=== PATIENT | male | born 1960 | race Caucasian/White ===

== ENCOUNTER 2018-05-23 00:58 | Emergency (ER) | payer OTHER ==
--- NOTE | 2018-05-23 01:32 | PDOC ---
History of Present Illness - General History Source: Patient - History of Present Illness Initial Comments: 05/23/18 02:14 58 yr old man with hypercholesterolemia, hx of colon polyps presents with left sided chest pain that feels "pressure-like" that is 7/10 radiating upto his neck starting at 10:30pm a/w dizziness and mild frontal headache. He had been resting in bed reading since 7pm when the pain suddenly started. He took 72mg of aspiring and walked around which helped his pain decr some but not completely resolve, the pain continued until 11:30 when he took 3 more 72mg of aspirin and at midnight he called 911. he was in his usual state of health all day, had his usual fish dinner around 5pm. He had an steroid epidural for sciatica 1 week ago at [facility], has received them in the past. He had a colonoscopy 2 weeks ago at [facility], was found to have colonic polyps. traveled to [place] Feb 22 to Mar 24 2018 (9hr flight) exercise stress 4 years ago was negative. Denies shortness of breath, vision changes, abdomial pain, n/v, diarrhea, constipation, weight changes, dysuria, no LE edema, cough, trauma, dyspepsia. Sochx: denies smoking, ETOH, or drugs. 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 Pmhx: hypercholesterolemia, colon polyps, sciatica Surghx: denies <Princess Quiles - Last Filed: 05/23/18 02:57> <Anila Olvera - Last Filed: 05/23/18 03:46> - General Chief Complaint: Chest Pain Stated Complaint: CHEST PAIN Time Seen by Provider: 05/23/18 01:32 Past History - Travel Traveled outside of the country in the last 30 days: No Close contact w/someone who was outside of country & ill: No - Past Medical History Anemia: No Asthma: No Cancer: No Cardiac Disorders: No CVA: No COPD: No CHF: No Dementia: No Diabetes: No GI Disorders: Yes (colon polyps) Disorders: No HTN: No Hypercholesterolemia: Yes Liver Disease: No Seizures: No Thyroid Disease: No - Surgical History Abdominal Surgery: Yes (LASER -KIDNEY VEIN-POOR BLOOD SUPLY) Appendectomy: No Cardiac Surgery: No Cholecystectomy: No Lung Surgery: No Orthopedic Surgery: No - Family Disease History Family Disease History: Heart Disease: Father ( from colon ca at age 85 , AK at age 51), CA: Father, Other: Mother (at age 75) - Suicide/Smoking/Psychosocial Hx Smoking History: Never smoked Hx Alcohol Use: No Drug/Substance Use Hx: No Lives with/in: spouse/SO <Princess Quiles - Last Filed: 05/23/18 02:57> <Anila Olvera - Last Filed: 05/23/18 03:46> - Past Medical History Allergies/Adverse Reactions: Allergies Allergy/AdvReac Type Severity Reaction Status Date / Time No Known Allergies Allergy Verified 11/09/11 14:00 Home Medications: Ambulatory Orders Ezetimibe [Zetia] 10 mg PO HS 11/09/11 Simvastatin [Zocor] 80 mg PO HS 11/09/11 Review of Systems - Review of Systems Constitutional: No: Chills, Fever, Malaise, Night Sweats, Weakness, Unintentional Wgt. Loss HEENTM: No: Blurred Vision, Double Vision, Nose Congestion, Tinnitus, Difficulty Swallowing Respiratory: No: Cough, SOB with Exertion, Wheezing, Productive cough Cardiac (ROS): Yes: Chest Tightness. No: Edema, Irregular Heart Rate, Palpitations, Syncope ABD/GI: No: Abdominal Distended, Difficulty Swallowing, Nausea, Poor Appetite, Poor Fluid Intake, Abdominal cramping : No: Dysuria, Frequency, Flank Pain, Hematuria Musculoskeletal: No: Back Pain, Joint Pain, Muscle Pain, Muscle Weakness, Neck Pain Integumentary: No: Bruising, Erythema, Pruritus, Rash, Sweating Neurological: Yes: Headache, Dizziness. No: Numbness, Tremors, Unsteady Gait Endocrine: No: Excessive Sweating, Intolerance to Cold <Princess Quiles - Last Filed: 05/23/18 02:57> *Physical Exam - Physical Exam General Appearance: Yes: Appropriately Dressed HEENT: positive: EOMI, MAHENDRA, Normal Voice, Pharynx Normal. negative: Tonsillar Exudate, Rhinorrhea, Sinus Tenderness, Thrush Neck: positive: Trachea midline, Normal Thyroid, Supple. negative: Carotid bruit, Thyromegaly Respiratory/Chest: positive: Lungs Clear, Normal Breath Sounds. negative: Chest Tender, Crackles, Rhonchi, Wheezing Cardiovascular: positive: Regular Rhythm, Regular Rate. negative: JVD, Murmur Vascular Pulses: Carotid (R): 2+, Carotid (L): 2+ Gastrointestinal/Abdominal: positive: Soft. negative: Tender, Distended, Guarding, Rebound, Tenderness Musculoskeletal: negative: CVA Tenderness Extremity: negative: Calf Tenderness, Erythema Integumentary: positive: Dry, Warm Neurologic: positive: Fully Oriented, Alert, Motor Strength 5/5 <Princess Quiles - Last Filed: 05/23/18 02:57> - Vital Signs Last Vital Signs Temp Pulse Resp BP Pulse Ox 98.1 F 77 18 116/74 98 05/23/18 00:58 05/23/18 00:58 05/23/18 00:58 05/23/18 00:58 05/23/18 00:58 <Anila Olvera - Last Filed: 05/23/18 03:46> Moderate Sedation - Procedure Monitoring Vital Signs: Procedure Monitoring Vital Signs Temperature 98.1 F 05/23/18 00:58 Pulse Rate 77 05/23/18 00:58 Respiratory Rate 18 05/23/18 00:58 Blood Pressure 116/74 05/23/18 00:58 O2 Sat by Pulse Oximetry (%) 98 05/23/18 00:58 <Anila Olvera - Last Filed: 05/23/18 03:46> Heart Score/ECG Review - Electrocardiogram EKG: Normal - Age Age: 45-65 - Risk Factors Risk Factors Heart Score: Yes Hx Hypercholesterolemia, Yes Positive family hx of cardiac disease Based on the list above the patient has:: 1-2 risk factors - ECG Intrepretation Rhythm: Regular Rhythm - [place]: Normal - ECG Impressions Normal ECG: Yes <Princess Quiles - Last Filed: 05/23/18 02:57> ED Treatment Course - LABORATORY CBC & Chemistry Diagram: 05/23/18 02:01 05/23/18 02:01 <Princess Quiles - Last Filed: 05/23/18 02:57> - LABORATORY CBC & Chemistry Diagram: 05/23/18 02:01 05/23/18 02:01 - ADDITIONAL ORDERS Additional order review: Laboratory Results 05/23/18 05/23/18 02:01 02:01 PT with INR 10.90 INR 0.92 Sodium 139 Potassium 4.1 Chloride 104 Carbon Dioxide 27 Anion Gap 8 BUN 21 H Creatinine 0.9 Creat Clearance w eGFR > 60 Random Glucose 92 Calcium 8.3 L Total Bilirubin 0.3 AST 20 ALT 39 Alkaline Phosphatase 70 Creatine Kinase 128 Troponin I < 0.02 Total Protein 6.9 Albumin 3.8 05/23/18 02:01 RBC 4.78 MCV 94.1 MCHC 35.4 RDW 13.0 MPV 11.7 H Neutrophils % 60.2 Lymphocytes % 28.5 Monocytes % 9.3 Eosinophils % 1.4 Basophils % 0.6 - RADIOLOGY Radiology Studies Ordered: Category Date Time Status CHEST PA & LAT [RAD] Stat Radiology 05/23/18 02:20 Taken <Anila Olvera - Last Filed: 05/23/18 03:46> Medical Decision Making - Medical Decision Making 05/23/18 02:32 58 yr old man with HLD presents with chest pain. EKG normal with 2 risk factors for AK, will check troponin and basic labs to r/ o anemia or electrolyte abnormality that may be causing the chest pain as he just had a colonoscopy recently. 05/23/18 02:57 Labs all wnl without leucocytosis, anemia, or electrolyte abnormalities. Trop negative. discussed with labs and EKG results with patient and recommendation to follow- up with PCP for further outpatient evaluation. pt and in agreement with plan. answered all questions to their satisfaction. pt's chest symptoms resolved with no reoccurence in the ED. pt stable for outpatient follow-up. <Princess Quiles - Last Filed: 05/23/18 02:57> *DC/Admit/Observation/Transfer - Discharge Dispostion Decision to Admit order: No <Princess Quiles - Last Filed: 05/23/18 02:57> <Anila Olvera - Last Filed: 05/23/18 03:46> Diagnosis at time of Disposition: Atypical chest pain - Discharge Dispostion Disposition: HOME Condition at time of disposition: Stable - Referrals Referrals: Agustin Galeana MD [Primary Care Provider] - - Patient Instructions Printed Discharge Instructions: DI for Chest Pain Additional Instructions: You were evaluated for chest pain with an EKG and labs. Your EKG and labs were all normal today. Please follow-up with Dr. Galeana for post-hospital evaluation. If you develop chest pain again, trouble breathing or any new symptoms please return to the hospital. - Post Discharge Activity
[2018-05-23 01:52] VITALS: BP 116/74; PULSE 77; TEMP 98.1; BMI 29.9
[2018-05-23 02:20] LABS: BASO % 0.6 % (0-2.0); EOS % 1.4 % (0-4.5); LYMPH % 28.5 % (8-40); MCH 33.4 pg (25.7-33.7); MCHC 35.4 g/dl (32.0-35.9); MEAN CELL VOLUME 94.1 fl (80-96); MEAN PLT VOLUME 11.7 fl (7.5-11.1); MONO % 9.3 % (3.8-10.2); NEUT % 60.2 % (42.8-82.8); PLATELET COUNT 155 K/MM3 (134-434); RBC 4.78 M/mm3 (4.00-5.60); WHITE BLOOD COUNT 9.6 K/mm3 (4.0-10.0)
--- NOTE | 2018-05-23 02:23 | PDOC ---
Attending Attestation - Resident Resident Name: Princess Quiles - ED Attending Attestation I have performed the following: I have examined & evaluated the patient, The case was reviewed & discussed with the resident, I agree w/resident's findings & plan - Medical Decision Making 05/23/18 03:44 labs normal; cxr normal; exam normal. Pt has a normal sinus EKG and he will be discharged home. Heart Score/ECG Review - ECG Intrepretation Rhythm: Regular Rhythm - Chambers Chambers: Normal - P and LA Delta Wave(s) Present: No WPW: No - QRS Poor R Wave Progression: No Q Wave Present: No - ST and T Early Repolarization: No Non Specific ST-T Wave changes: No - ECG Impressions Normal ECG: Yes Non-specific ST Elevation: No Ischemic Changes: No Bradycardia: No Torsades justino Pointes: No WPW: No
[2018-05-23 02:34] LABS: INR 0.92 (0.83-1.09); PROTHROMBIN TIME (PATIENT) 10.9 SEC (9.7-13.0)
[2018-05-23 02:54] LABS: ALBUMIN 3.8 g/dl (3.4-5.0); ALK PHOS 70 U/L (45-117); ANION GAP 8 MMOL/L (8-16); BILIRUBIN,TOTAL 0.3 mg/dL (0.2-1); BLOOD UREA NITROGEN 21 mg/dL (7-18); CALCIUM 8.3 mg/dL (8.5-10.1); CHLORIDE 104 mmol/L (98-107); CO2 27 mmol/L (21-32); CREATININE 0.9 mg/dL (0.55-1.3); GLUCOSE,RANDOM 92 mg/dL (74-106); POTASSIUM 4.1 mmol/L (3.5-5.1); SGOT/AST 20 U/L (15-37); SGPT/ALT 39 U/L (13-61); SODIUM 139 mmol/L (136-145); TOT PROT 6.9 g/dl (6.4-8.2)
--- NOTE | 2018-05-23 10:30 | EKG ---
Test Reason : Blood Pressure : / mmHG Vent. Rate : 060 BPM Atrial Rate : 060 BPM P-R Int : 150 ms QRS Dur : 102 ms QT Int : 420 ms P-R-T Axes : 039 030 037 degrees QTc Int : 420 ms NORMAL SINUS RHYTHM NORMAL ECG NO PREVIOUS ECGS AVAILABLE Confirmed by GRETCHEN LUNSFORD MD ([id number]) on 05/23/2018 10:30:07 AM Referred By: Confirmed By:GRETCHEN LUNSFORD MD
== END 2018-05-23 04:30 | disposition home or self-care (01) ==
LOC: JER 00:58
DX: R07.9 Chest pain, unspecified (principal)
CPT/HCPCS: 36415; 71046-TC-FY; 80053; 82550; 84484; 85025; 85610; 93005; 93010; 99282-25

== ENCOUNTER 2019-11-20 15:05 | Emergency (ER) | payer OTHER ==
[2019-11-20 15:30] VITALS: BP 115/71; PULSE 72; TEMP 98.1; BMI 27.2
--- NOTE | 2019-11-20 17:21 | PDOC ---
History of Present Illness - General Chief Complaint: Pain, Acute Stated Complaint: BACK PAIN Time Seen by Provider: 11/20/19 15:42 - History of Present Illness Initial Comments: 11/20/19 17:13 59yo male with a history of HLD and disc herniation presenting with acute left flank pain and hematuria. States his left flank began 4 days prior. The next day, he began to have dark urine, and has seen red blood at the end of his stre am since yesterday. He describes the pain as cramping, intermittent, wrapping around to the front, and slightly on the right flank as well. Different from his chronic back pain. He has had polyuria and has been drinking a lot. ROS otherwise negative. Patient states he was told he had a kidney stone during an MRI for his back pain. Could not find that report. I saw a note of extrapelvic renal cysts. PMH/PSH: as in HPI Meds: statin Allergies:none Tob/Etoh/Rec drugs: denies ROS GENERAL/CONSTITUTIONAL: No fever or chills. No weakness. HEAD, EYES, EARS, NOSE AND THROAT: No change in vision. No ear pain or discharge. No sore throat. CARDIOVASCULAR: No chest pain or shortness of breath RESPIRATORY: No cough, wheezing, or hemoptysis. GASTROINTESTINAL: No nausea, vomiting, diarrhea or constipation. GENITOURINARY: hematuria and polyuria. left flank pain MUSCULOSKELETAL: No joint or muscle swelling or pain. SKIN: No rash NEUROLOGIC: No headache, vertigo, loss of consciousness, or change in strength/sensation. ENDOCRINE: No increased thirst. No abnormal weight change HEMATOLOGIC/LYMPHATIC: No anemia, easy bleeding, or history of blood clots. ALLERGIC/IMMUNOLOGIC: No hives or skin allergy. PE GENERAL: Awake, alert, and fully oriented, in no acute distress. Stiff left back, and stiff when transferring from lying/sitting/standing HEAD: No signs of trauma, normocephalic, atraumatic EYES: PERRLA, EOMI, sclera anicteric, conjunctiva clear ENT: Auricles normal inspection, hearing grossly normal, nares patent, oropharynx clear without exudates. Moist mucosa NECK: Normal ROM, supple, no lymphadenopathy, JVD, or masses LUNGS: No distress, speaks full sentences, clear to auscultation bilaterally HEART: Regular rate and rhythm, normal S1 and S2, no murmurs, rubs or gallops, peripheral pulses normal and equal bilaterally. ABDOMEN: Soft, nontender, normoactive bowel sounds. No guarding, no rebound. No masses. No flank ecchymosis. EXTREMITIES : Normal inspection, Normal range of motion, no edema. No clubbing or cyanosis. NEUROLOGICAL: Cranial nerves II through XII grossly intact. Normal speech, normal gait, no focal sensorimotor deficits SKIN: Warm, Dry, normal turgor, no rashes or lesions noted BACK: No midline tenderness, no CVA tenderness, no paraspinal tenderness. Vital Signs Temp Pulse Resp BP Pulse Ox 98.1 F 72 18 115/71 99 11/20/19 15:22 11/20/19 15:22 11/20/19 15:22 11/20/19 15:22 11/20/19 15:22 MDM: 59yo male with a history of HLD and disc herniation presenting with acute left flank pain and hematuria. UA is red in appearance. Most likely nephrolithiasis, but could be rhabomyolysis, as the patient's back is very stiff. Less concern for pylonephritis, ruptured AAA, aortic disection based on history and lack of exam findings. -CBC, CMP, coags, CK, UA/UC -CT A/P w/o contrast -1000ml NS, toradol, valium, lidoderm patch 11/20/19 18:23 Labs unremarkable. UA was red/orange, but no blood. CT negative for urolithiasis, hydronephrosis, or any acute renal process. Denied ingesting beets, rhubarb, and a list of other medications and foods that can turn urine red or orange. DC home with urology follow up and return precautions. 11/20/19 19:24 Past History - Medical History Allergies/Adverse Reactions: Allergies Allergy/AdvReac Type Severity Reaction Status Date / Time No Known Allergies Allergy Verified 11/20/19 15:22 Home Medications: Ambulatory Orders Atorvastatin Calcium mg PO 11/20/19 Anemia: No Asthma: No Cancer: No Cardiac Disorders: No CVA: No COPD: No CHF: No Dementia: No Diabetes: No GI Disorders: Yes (colon polyps) Disorders: No HTN: No Hypercholesterolemia: Yes Liver Disease: No Seizures: No Thyroid Disease: No - Surgical History Abdominal Surgery: Yes (LASER -KIDNEY VEIN-POOR BLOOD SUPLY) Appendectomy: No Cardiac Surgery: No Cholecystectomy: No Lung Surgery: No Orthopedic Surgery: No - Psycho-Social/Smoking History Smoking History: Never smoked Have you smoked in the past 12 months: No - Substance Abuse Hx (Audit-C & DAST Scrn) How often the patient has a drink containing alcohol: Never Score: In Men: 4 or > Positive; In Women: 3 or > Positive: 0 Screen Result (Pos requires Nsg. Audit-10AR): Negative In the last yr the pt used illegal drug/Rx for NonMed reason: No Score: Yes response is considered Positive: 0 Screen Result (Positive result requires Nsg. DAST-10): Negative *Physical Exam - Vital Signs Last Vital Signs Temp Pulse Resp BP Pulse Ox 98.1 F 72 18 115/71 99 11/20/19 15:22 11/20/19 15:22 11/20/19 15:22 11/20/19 15:22 11/20/19 15:22 ED Treatment Course - LABORATORY CBC & Chemistry Diagram: 11/20/19 17:29 11/20/19 17:29 Discharge - Discharge Information Problems reviewed: Yes Clinical Impression/Diagnosis: Flank pain, Red-colored urine Condition: Fair Disposition: HOME - Admission No - Follow up/Referral Referrals: Agustin Galeana MD [Primary Care Provider] - - Patient Discharge Instructions Additional Instructions: You were seen in the ER for left flank pain. We got labs and a urinalysis, which were normal. Your urine was red/orange, but there was no blood. WE did a CT scan which did not show a kidney stone or any other acute process. You were given toradol, valium, and a lidocaine patch for pain control as well as fluids. We do not have a good explanation for why you are having this pain or why your urine is red. We are giving you a referal with a urologist. You should also follow up with your primary care doctor within the next three days. You may continue to take advil 600mg every 6 hours up to 4 times per day for pain. You may also take tylenol 1000mg every 8 hours up to 3 times per day. Please return to the ER if you experience continued or worsening symptoms, fever, chills, lightheadedness, weakness, or any other problem. - Post Discharge Activity
[2019-11-20] MEDS ORDERED: SODIUM CHLORIDE 0.9% 500 ML INFUS.BAG IV ONE (17:38)
[2019-11-20] MEDS ORDERED: KETOROLAC TROMETHAMINE 15 MG/ML VIAL IVPUSH ONE (17:38)
[2019-11-20] MEDS ORDERED: diazePAM CARPU-JECT 10 MG/2 ML DISP.SYRIN IVPUSH ONE (17:38)
[2019-11-20] MEDS ORDERED: diazePAM 5 MG TABLET PO ONE (17:40)
[2019-11-20] MEDS ORDERED: LIDOCAINE 5% TOPICAL PATCH TP ONE (17:40)
[2019-11-20] MEDS ORDERED: diazePAM 5 MG TABLET ONE (17:40)
[2019-11-20] MEDS ORDERED: KETOROLAC TROMETHAMINE 15 MG/ML VIAL ONE (17:40)
[2019-11-20 17:50] LABS: BASO % 1.1 % (0-2.0); EOS % 1.4 % (0-4.5); HEMATOCRIT 44.8 % (35.4-49); HEMOGLOBIN 14.9 GM/dL (11.7-16.9); LYMPH % 20.5 % (8-40); MCH 31.1 pg (25.7-33.7); MCHC 33.4 g/dl (32.0-35.9); MEAN CELL VOLUME 93.2 fl (80-96); MEAN PLT VOLUME 11.3 fl (7.5-11.1); PLATELET COUNT 176 K/MM3 (134-434); RDW 12.8 % (11.9-15.9); WHITE BLOOD COUNT 9.5 K/mm3 (4.0-10.0)
[2019-11-20 17:57] LABS: INR 0.95 (0.83-1.09); PROTHROMBIN TIME (PATIENT) 11.2 SEC (9.7-13.0)
[2019-11-20 18:00] LABS: ACTIVATED PTT 34.4 SECONDS (25.2-36.5)
[2019-11-20 18:01] LABS: URINE APPEARANCE Clear; URINE BILIRUBIN Negative (NEGATIVE); URINE GLUCOSE (UA) Trace (NEGATIVE); URINE KETONE Negative (NEGATIVE); URINE LEUK ESTERASE Negative (NEGATIVE); URINE NITRITE Positive (NEGATIVE); URINE PROTEIN Negative (NEGATIVE); URINE UROBILINOGEN 0.2 mg/dL (0.2-1.0)
[2019-11-20 18:22] LABS: BILIRUBIN,TOTAL 0.3 mg/dL (0.2-1); BLOOD UREA NITROGEN 15.9 mg/dL (7-18); CALCIUM 9.1 mg/dL (8.5-10.1); CREATININE 1.1 mg/dL (0.55-1.3); POTASSIUM 4.4 mmol/L (3.5-5.1); TOT PROT 7.6 g/dl (6.4-8.2)
[2019-11-20 18:34] LABS: URINE COLOR ORANGE
--- NOTE | 2019-11-20 21:10 | PDOC ---
Documentation entered by Sher Castaneda SCRIBE, acting as scribe for Wiley Griggs DO. Wiley Griggs DO: This documentation has been prepared by the Leonel thomas Xhesika, SCRIBE, under my direction and personally reviewed by me in its entirety. I confirm that the documentation accurately reflects all work, treatment, procedures, and medical decision making performed by me. Attending Attestation - Resident Resident Name: Sam Cardozo - ED Attending Attestation I have performed the following: I have examined & evaluated the patient, The case was reviewed & discussed with the resident, I agree w/resident's findings & plan - HPI HPI: 11/20/19 17:47 see resident HPI - Physicial Exam PE: 11/20/19 17:47 Agree with resident exam - Medical Decision Making 11/20/19 17:43 59y/o M who presents with flank pain PE: reproducible L paraspinal tenderness, stiffness and pain with motion no midline tend able to stand 5+ strength B/l A/P: plan for pain control renal colonic vs rhabdo mylitis/obstructive neuropathy vs pyelonephritis Discharge - Discharge Information Problems reviewed: Yes Clinical Impression/Diagnosis: Flank pain, Red-colored urine Condition: Fair Disposition: HOME - Admission No - Follow up/Referral Referrals: Alfonso Adam MD [Staff Physician] - Agustin Galeana MD [Primary Care Provider] - - Patient Discharge Instructions Additional Instructions: You were seen in the ER for left flank pain. We got labs and a urinalysis, which were normal. Your urine was red/orange, but there was no blood. WE did a CT scan which did not show a kidney stone or any other acute process. You were given toradol, valium, and a lidocaine patch for pain control as well as fluids. We do not have a good explanation for why you are having this pain or why your urine is red. We are giving you a referal with a urologist. You should also follow up with your primary care doctor within the next three days. You may continue to take advil 600mg every 6 hours up to 4 times per day for pain. You should only take this high dose for a maximum of two weeks, then use as directed on the label. You may also take tylenol 1000mg every 8 hours up to 3 times per day. Please return to the ER if you experience continued or worsening symptoms, fever, chills, lightheadedness, weakness, or any other problem. - Post Discharge Activity
[2019-11-20] MEDS ORDERED: LIDOCAINE PATCH REMOVAL MC SCH (22:00)
== END 2019-11-20 20:08 | disposition home or self-care (01) ==
LOC: JER 15:05
PROC: 3E0333Z Introduction of Anti-inflammatory into Peripheral Vein, Percutaneous Approach (ICD-10-PCS; principal; 2019-11-20)
DX: R10.9 Unspecified abdominal pain (principal); R31.9 Hematuria, unspecified
CPT/HCPCS: 36415; 74176-TC; 80053; 81003; 82550; 85025; 85610; 85730; 87086; 99284-25